=== PATIENT | male | born 1995 | race Caucasian/White ===

== ENCOUNTER 2022-04-14 16:49 | Emergency (ER) | payer SELFPAY ==
[~2022-04-14] VITALS: Ht 172.7 cm; Wt 82.6 kg
[2022-04-14 17:20] VITALS: BP 165/89
--- NOTE | 2022-04-14 19:19 | NUR ---
to bed 2 from lobby
--- NOTE | 2022-04-14 19:20 | NUR ---
PT WALKED IN C/O RIGHT LEG NUMBNESS TO LATERAL LOWER EXTREMITY. DENIES PAIN AT THIS TIME. PT ALSO C/O VARICOSE VEIN ON LEG. +ABLE TO AMBULATE. PT STATES HE WORKS LONG 12-16 HOUR SHIFTS ON HIS FEET. DENIES SOB, CP. BEFAST NEGATIVE.
--- NOTE | 2022-04-14 19:25 | NUR ---
PT SEEN BY PROVIDER IN TRIAGE
--- NOTE | 2022-04-14 19:42 | NUR ---
Patient discharged with v/s stable. Written and verbal after care instructions given and explained. Patient verbalized understanding. Ambulatory with steady gait. All questions addressed prior to discharge. Advised to follow up with PMD.
[2022-04-14 19:45] VITALS: BP 134/74
== END 2022-04-14 19:42 | disposition home or self-care (01) ==
LOC: MED 16:49
DX: R03.0 Elevated blood-pressure reading, without diagnosis of hypertension (principal); I83.811 Varicose veins of right lower extremity with pain
CPT/HCPCS: 93971; 99284; Q0092

== ENCOUNTER 2023-03-17 15:14 | Emergency (ER) | payer MEDICAID | END 2023-03-17 15:30 | disposition left against medical advice (07) | LOC: MED 15:14 | DX: M79.669 Pain in unspecified lower leg (principal); Z53.21 Procedure and treatment not carried out due to patient leaving prior to being seen by health care provider ==

== ENCOUNTER 2023-04-24 10:03 | Emergency (ER) | payer MEDICAID ==
[~2023-04-24] VITALS: Ht 177.8 cm; Wt 83.5 kg
[2023-04-24 10:44] VITALS: BP 125/82; PULSE 82; RESP 16; TEMP 98.2; O2SAT 97
[2023-04-24 12:06] VITALS: O2SAT 97
[2023-04-24] MEDS ORDERED: NAPR-54 PO (12:33)
== END 2023-04-24 12:44 | disposition home or self-care (01) ==
LOC: MED 10:03
DX: I83.891 Varicose veins of right lower extremity with other complications (principal); Z79.899 Other long term (current) drug therapy
CPT/HCPCS: 93971; 99284